=== PATIENT | male | born 1945 | race Caucasian/White ===

== ENCOUNTER → 2016-10-02 | Outpatient (CLI) | payer MEDICARE | END | disposition home or self-care (01) | LOC: GMAB 10:43 | PROVIDERS: ATTEND Family Medicine | DX: D53.9 Nutritional anemia, unspecified (principal) ==

== ENCOUNTER → 2017-04-16 | Outpatient (CLI) | payer MEDICARE | END | disposition home or self-care (01) | LOC: GMAB 10:44 | PROVIDERS: ATTEND Family Medicine | DX: D53.9 Nutritional anemia, unspecified (principal) ==

== ENCOUNTER 2017-04-22 05:45 | Day surgery (SDC) | payer MEDICARE ==
[2017-04-22] MEDS ORDERED: LACTATED RINGERS 1,000 ML ONE (05:55)
[2017-04-22] MEDS ORDERED: PROPOFOL 200 MG/20 ML VIAL IV ONE (09:00)
--- NOTE | 2017-04-22 10:08 | OP ---
DATE OF PROCEDURE: 04/22/17 PREOPERATIVE DIAGNOSIS: 1. History of polyps. The patient had serrated adenoma removed in March 2014. POSTOPERATIVE DIAGNOSIS: 1. Ascending colon polyp. 2. Diverticulosis. PROCEDURE: 1. Colonoscopy plus polypectomy. SURGEON: Jason Triplett MD. COMPLICATIONS: None apparent. BLOOD LOSS: None. MEDICATIONS: Monitored anesthesia care. DESCRIPTION OF PROCEDURE: Informed consent was obtained prior to sedation. The preprocedure cardiopulmonary assessment was satisfactory. The patient was placed in the left lateral decubitus position and was sedated. A digital rectal exam was unremarkable. The tip of the Olympus colonoscope was inserted in the rectum and guided over to the cecum. The cecum was identified by locating the ileocecal valve and appendiceal orifice. Prep was good. The mucosa of the cecum, ascending colon, hepatic flexure, transverse colon, splenic flexure, descending colon and sigmoid colon was closely examined. Direct and retroflexed views of the rectum were obtained. The patient had an 8 mm sessile polyp in the ascending colon. This was removed with a hot snare. To make sure there was no residual tissue on the edges of the polypectomy site, the hot snare was used to fulgurate the edges. The patient had a few sigmoid diverticula. Otherwise, the colonoscopy was unremarkable. The procedure was then terminated. ENDOSCOPIC FINDINGS: 1. Single ascending colon polyp, removed with hot snare. 2. Diverticulosis. RECOMMENDATIONS: 1. Followup polyp pathology. 2. We will review that with the patient over the phone in a week. #[id number] cc: Gianfranco Carreon MD MTDD
[2017-04-22 10:20] VITALS: BP 130/86; TEMP 97.1; O2SAT 97
== END 2017-04-22 10:00 | disposition home or self-care (01) ==
LOC: AMB 05:45
PROVIDERS: ATTEND Internal Medicine Gastroenterology
DX: Z12.11 Encounter for screening for malignant neoplasm of colon (principal); D12.2 Benign neoplasm of ascending colon; K57.30 Diverticulosis of large intestine without perforation or abscess without bleeding; I10 Essential (primary) hypertension; E78.5 Hyperlipidemia, unspecified; E11.9 Type 2 diabetes mellitus without complications; K76.0 Fatty (change of) liver, not elsewhere classified; Z86.010 Personal history of colon polyps; Z87.891 Personal history of nicotine dependence; Z86.73 Personal history of transient ischemic attack (TIA), and cerebral infarction without residual deficits; Z79.82 Long term (current) use of aspirin; Z79.899 Other long term (current) drug therapy
CPT/HCPCS: 00810; 45385; 82948; 88305; J7120

== ENCOUNTER → 2017-09-02 | Outpatient (CLI) | payer MEDICARE | LOC: GMAB 11:29 | PROVIDERS: ATTEND Family Medicine | DX: Z12.5 Encounter for screening for malignant neoplasm of prostate (principal); I10 Essential (primary) hypertension | CPT/HCPCS: 84443; G0103 ==

== ENCOUNTER → 2017-10-02 | Outpatient (CLI) | payer MEDICARE | LOC: GMAB 10:34 | PROVIDERS: ATTEND Family Medicine | DX: D53.9 Nutritional anemia, unspecified (principal) ==

== ENCOUNTER → 2017-12-11 | Outpatient (CLI) | payer MEDICARE ==
--- NOTE | 2017-12-11 13:57 | US ---
EXAM DESCRIPTION: Renal: Ultrasound. CLINICAL HISTORY: N18.4. Chronic kidney disease, stage IV (severe). COMPARISON: Bilateral renal arterial Doppler evaluation on the same visit. TECHNIQUE: Transcutaneous scanning: Two-dimensional and Doppler modes. FINDINGS: Right kidney measures 9.6 x 5.6 x 5.5 cm; mid-renal cortical thickness 12 mm. . Minimally increased cortical echogenicity. No hydronephrosis No calcifications. Minimally lobulated contour of the kidney with no perinephric fluid. Normal vascularity. Proximal ureter not visualized. Left kidney measures 10.6 x 5.7 x 5.6 cm; mid-renal cortical thickness normal. Increased echogenicity of the cortex.. 2.0 x 1.5 x 1.4 cm cyst. 1.1 x 1.0 x 0.71 cm cyst. No hydronephrosis. No calcifications. Minimally lobulated contour of the kidney with no perinephric fluid. Normal vascularity.. Proximal ureter not visualized. Urinary bladder not visualized. Abdominal aorta diameter not measured. IMPRESSION: Bilateral kidneys with lobulated contour and increased cortical echogenicity consistent with chronic renal disease. Normal thickness of the left renal cortex. No hydronephrosis or large calcifications bilaterally. No perinephric fluid. Proximal ureters were not seen. Urinary bladder was not seen. Electronically signed by: Ash Wood MD 12/11/2017 1:56 PM CDT
== END ==
LOC: LAB.O 09:12
PROVIDERS: ATTEND Internal Medicine Nephrology
DX: N18.4 Chronic kidney disease, stage 4 (severe) (principal); Z11.59 Encounter for screening for other viral diseases

== ENCOUNTER → 2018-04-02 | Outpatient (CLI) | payer MEDICARE | LOC: GMAE 10:27 | PROVIDERS: ATTEND Family Medicine | DX: D53.9 Nutritional anemia, unspecified (principal) ==

== ENCOUNTER → 2018-05-05 | Outpatient (CLI) | payer MEDICARE ==
--- NOTE | 2018-05-05 17:21 | US ---
Procedure: US ABDOMEN Exam Date: 05/05/2018 Ordering Provider: MITCHELL SUGGS Clinical Indication: CIRRHOSIS Comparison: 06/17/2016 Technique: Real-time ultrasonography was obtained over the abdominal viscera and professional healthcare representative images were recorded. Findings: The liver is normal in size. Slightly nodular contour, particularly of the left hepatic lobe. There is a coarsened hepatic echotexture. There are no intrahepatic masses. There is no intrahepatic ductal dilatation. Hepatopedal flow in the main portal vein. The gallbladder is normal in size and appearance. There are no gallstones. There is no gallbladder wall thickening or pericholecystic fluid. The extrahepatic common duct is normal in size measuring 4.2 mm. The spleen is normal in size and contour. There are no splenic masses. Pancreas is obscured by overlying bowel gas. No evidence of abdominal aortic aneurysm. The right kidney measures 10.0 cm in bipolar length. There are no suspicious masses, calculi, or hydronephrosis. The left kidney measures 10.8 cm in bipolar length. There are no suspicious masses, calculi, or hydronephrosis. Multiple cysts, largest measuring 1.6 cm. There is no ascites. Impression: 1. Cirrhotic liver morphology. No hepatic mass identified. 2. Left renal cysts. Electronically signed by: Trevor Azevedo MD 05/05/2018 5:20 PM CDT
== END ==
LOC: LAB.O 11:24
PROVIDERS: ATTEND Internal Medicine Gastroenterology
DX: K74.60 Unspecified cirrhosis of liver (principal); K76.89 Other specified diseases of liver

== ENCOUNTER → 2019-04-01 | Outpatient (CLI) | payer MEDICARE | LOC: GMAE 10:27 | PROVIDERS: ATTEND Family Medicine | DX: D64.9 Anemia, unspecified (principal) ==

== ENCOUNTER → 2019-11-25 | Outpatient (CLI) | payer MEDICARE ==
--- NOTE | 2019-11-25 09:05 | RAD ---
EXAM DESCRIPTION: Hand,Left 3 Views CLINICAL HISTORY: 74 years Male, PAIN IN LEFT HAND COMPARISON: None. Findings: 3 views/radiographs Location: Left hand No acute fracture or dislocation. Advanced first CMC osteoarthritis with radial subluxation of the thumb metacarpal. Marked scattered asymmetric IP joint space narrowing with associated overhanging osteophytes most pronounced in the second digit DIP joint. Soft tissues are unremarkable. IMPRESSION: Left hand arthropathy. No acute osseous abnormality. Electronically signed by: Isauro Mendez MD 11/25/2019 9:04 AM CDT
== END ==
LOC: RAD 07:33
PROVIDERS: ATTEND Orthopaedic Surgery
DX: M12.9 Arthropathy, unspecified (principal)

== ENCOUNTER → 2019-12-08 | Outpatient (CLI) | payer MEDICARE | LOC: LAB.O 09:08 | PROVIDERS: ATTEND Family Medicine | DX: Z01.818 Encounter for other preprocedural examination (principal) ==

== ENCOUNTER 2019-12-21 05:34 | Day surgery (SDC) | payer MEDICARE ==
[2019-12-21] MEDS ORDERED: LIDOCAINE 1% 10 ML VIAL INJ ONE ×2 (07:00→09:00)
[2019-12-21] MEDS ORDERED: PROPOFOL 200 MG/20 ML VIAL IV ONE (07:00)
[2019-12-21] MEDS ORDERED: LACTATED RINGERS 1,000 ML IVS ONE (07:25)
[2019-12-21] MEDS ORDERED: ceFAZolin SODIUM 1 GM VIAL IVPB ONE (08:53)
[2019-12-21] MEDS ORDERED: BUPIVACAINE 0.25% INJ 30 ML VIAL INJ ONE (09:00)
[2019-12-21] MEDS ORDERED: VANCOMYCIN HCL INJ 1,000 MG VIAL IVPB ONE ×2 (09:14→09:26)
[2019-12-21] MEDS ORDERED: ceFAZolin SODIUM 1 GM VIAL INJ ONE ×2 (09:14→09:26)
[2019-12-21 10:20] VITALS: BP 147/98; TEMP 97; O2SAT 97
--- NOTE | 2019-12-22 08:58 | OP ---
DATE OF PROCEDURE: 12/21/19 PREOPERATIVE DIAGNOSIS: 1. Carpal tunnel syndrome, left hand. POSTOPERATIVE DIAGNOSIS: 1. Carpal tunnel syndrome, left hand. PROCEDURE: 1. Carpal tunnel release. SURGEON: Wilfredo Alcala MD. SERVER ENGINEER: Ash Feng CST, SA-C. ANESTHESIA: Local with sedation. COMPLICATIONS: None. FINDINGS: 1. Thickening of the transverse carpal ligament. 2. Narrowing of the median nerve across the carpal tunnel. INDICATION: Mr. Valero has a history of symptoms consistent with carpal tunnel syndrome. Because of the presence of his carpal tunnel syndrome and the symptoms affecting his daily living, he has requested operative intervention. After discussing the risks, benefits and alternatives to that, the patient has given informed consent for carpal tunnel release. PROCEDURE: The patient was brought to the Operating Room and placed in the supine position. Sedation was administered and local anesthetic was injected into the operative area under sterile conditions. After the injection of anesthetic, the arm was sterilely prepped and draped. A longitudinal incision was made directly overlying the transverse carpal ligament and blunt dissection was carried down to the ligament. The transverse carpal ligament was sharply transected along its length and a [place] elevator was used to ensure complete release of the ligament. Once release had been confirmed, the wound was thoroughly irrigated and the wound was closed with Nylon suture. A sterile dressing was placed and the patient was taken to the Day Surgery Unit. POSTOPERATIVE PLAN: The patient has been encouraged to do range of motion of the digits and will followup with us in two days. [facility][id number] [facility]
== END 2019-12-21 10:15 | disposition home or self-care (01) ==
LOC: AMB 05:34
PROVIDERS: ATTEND Orthopaedic Surgery
DX: G56.01 Carpal tunnel syndrome, right upper limb (principal); I10 Essential (primary) hypertension; E11.9 Type 2 diabetes mellitus without complications; K21.9 Gastro-esophageal reflux disease without esophagitis; M19.90 Unspecified osteoarthritis, unspecified site; Z79.899 Other long term (current) drug therapy; Z87.891 Personal history of nicotine dependence
CPT/HCPCS: 01810; 36416; 64721; 80307; 82948; J0690; J3370; J3490; J7120

== ENCOUNTER → 2019-12-30 | Outpatient (CLI) | payer MEDICARE ==
--- NOTE | 2019-12-31 18:05 | RAD ---
EXAM DESCRIPTION: Radiographs of the bilateral Shoulder:XR/CR/DR CLINICAL HISTORY: SHOULDER PAIN COMPARISON: None TECHNIQUE: 4 views, each shoulder. Internal and External rotation. Scapular "Y" image. And also axillary view. FINDINGS: No fracture right shoulder. Normal bone density. AC joint minimal narrowing with inferior marginal spurs. Mild downward sloping of the lateral acromion. Glenohumeral joint minimal subchondral sclerosis in the glenoid No abnormal radiodense objects in the soft tissues or joint spaces. No fracture left shoulder. Normal bone density. AC joint marginal spur inferior distal clavicle Glenohumeral joint minimal subchondral sclerosis in the glenoid No abnormal radiodense objects in the soft tissues or joint spaces. IMPRESSION: No acute bony abnormalities bilateral shoulders. Bilateral AC joint arthrosis more right than left. Possible encroachment on the right. Supraspinatus tendon outlet. Early degenerative changes in the bilateral glenoid fossa. Electronically signed by: Ash Wood MD 12/31/2019 6:03 PM CDT
== END ==
LOC: RAD 09:39
PROVIDERS: ATTEND Orthopaedic Surgery
DX: M19.011 Primary osteoarthritis, right shoulder (principal); M19.012 Primary osteoarthritis, left shoulder

== ENCOUNTER → 2020-01-31 | Outpatient (CLI) | payer MEDICARE ==
--- NOTE | 2020-01-31 09:00 | MRI ---
EXAM DESCRIPTION: MRI left shoulder CLINICAL HISTORY: Shoulder pain. Rotator cuff sprain COMPARISON: None. TECHNIQUE: Multiplanar, multisequence MR images of the left shoulder FINDINGS: Moderate acromioclavicular osteoarthritis with mild indentation of the supraspinatus. Type II acromion with lateral downsloping and prominent inferior acromial spur Full-thickness supraspinatus tendon tear anteriorly uncovering the horizontal facet with approximately 1.1 cm with retraction up to 1.7 cm. Muscle volume is mildly decreased with grade 1 fatty infiltration Infraspinatus tendinosis. Low-grade interstitial partial tear of the anterior tendon. Mild muscle volume loss and grade 1 fatty infiltration. Teres minor tendon and muscle are normal. Developmentally narrow coracohumeral interval, 6 mm, predisposing to chronic coracoid impingement of the subscapularis. The tendon is thinned. Partial interstitial tear of the upper tendon. Muscle volume is mildly decreased with grade 1 fatty infiltration Long head biceps tendon normal in the bicipital groove inferiorly. Minimal subluxation superiorly. Intra-articular tendon intact. Labral anchor intact. Blunted posterior superior labrum. No acute labral detachment No glenohumeral chondrosis or chronic osteochondral lesion. Mild intracapsular and pericapsular edema IMPRESSION: Full-thickness supraspinatus tendon tear with partial retraction anterior to mid tendon Low-grade interstitial tear of the upper subscapularis tendon with minimal biceps tendon subluxation Electronically signed by: Raphael Mcclure MD 01/31/2020 8:59 AM CDT
== END ==
LOC: MRI 07:44
PROVIDERS: ATTEND Orthopaedic Surgery
DX: S43.421D Sprain of right rotator cuff capsule, subsequent encounter (principal); S46.292D Other injury of muscle, fascia and tendon of other parts of biceps, left arm, subsequent encounter

== ENCOUNTER → 2020-02-01 | Outpatient (CLI) | payer MEDICARE ==
--- NOTE | 2020-02-01 09:51 | MRI ---
Study: MRI of the Right Shoulder. Indication: SPRAIN OF SHOULDER ROTATOR CUFF RIGHT Technique: Multiplanar, multi sequence MRI of the right shoulder was obtained without intravenous contrast. Comparison: None. Findings: Mild to moderate AC joint osteoarthritis. Type I acromion with mild lateral downsloping. Trace subacromial/subdeltoid bursal fluid. Full-thickness tearing anterior two thirds supraspinatus tendon insertion with high-grade articular tearing of its posterior margin as well as of the anterior margin of the infraspinatus tendon. Torn tendon fibers retracted to the level of the midline humeral head. Subscapularis tendinosis and attenuation. Teres minor tendon intact. Mild atrophy and grade 1 fatty infiltration rotator cuff musculature. Long head biceps tendinosis with mild longitudinal fissuring. No rupture. Circumferential labral truncation and degeneration. Minimal glenohumeral joint osteoarthritis. No acute fracture. Thickening and edema inferior glenohumeral ligament which can be seen with adhesive capsulitis. Impression: Full-thickness tearing anterior two thirds supraspinatus insertional with high-grade articular tearing of its posterior margin as well as of the anterior margin infraspinatus tendon. Subscapularis tendinosis and attenuation. Mild atrophy and grade 1 fatty infiltration rotator cuff musculature. Long head biceps tendinosis with mild longitudinal fissuring. Circumferential labral truncation and degeneration. Minimal glenohumeral joint osteoarthritis. Adhesive capsulitis. Mild to moderate AC joint osteoarthritis. Electronically signed by: Federico Garza MD 02/01/2020 9:50 AM CDT
== END ==
LOC: MRI 07:56
PROVIDERS: ATTEND Orthopaedic Surgery
DX: S43.421D Sprain of right rotator cuff capsule, subsequent encounter (principal); S43.431D Superior glenoid labrum lesion of right shoulder, subsequent encounter; M62.511 Muscle wasting and atrophy, not elsewhere classified, right shoulder; M75.21 Bicipital tendinitis, right shoulder; M19.011 Primary osteoarthritis, right shoulder; M75.01 Adhesive capsulitis of right shoulder

== ENCOUNTER → 2020-02-07 | Outpatient (CLI) | payer MEDICARE | LOC: GMAE 10:22 | PROVIDERS: ATTEND Family Medicine | DX: Z12.5 Encounter for screening for malignant neoplasm of prostate (principal); I10 Essential (primary) hypertension; E11.9 Type 2 diabetes mellitus without complications; E78.2 Mixed hyperlipidemia | CPT/HCPCS: 84443; G0103 ==

== ENCOUNTER → 2020-02-23 | Outpatient (CLI) | payer MEDICARE | LOC: LAB.O 10:46 | PROVIDERS: ATTEND Orthopaedic Surgery | DX: Z01.818 Encounter for other preprocedural examination (principal) ==

== ENCOUNTER 2020-04-25 05:20 | Day surgery (SDC) | payer MEDICARE ==
[2020-04-25] MEDS ORDERED: LACTATED RINGERS 1,000 ML ONE (06:38)
[2020-04-25] MEDS ORDERED: LIDOCAINE 1% 10 ML VIAL INJ ONE (07:00)
[2020-04-25] MEDS ORDERED: PROPOFOL 200 MG/20 ML VIAL IV ONE (07:00)
--- NOTE | 2020-04-25 09:49 | OP ---
DATE OF PROCEDURE: 04/25/20 PREOPERATIVE DIAGNOSIS: 1. History of polyps. POSTOPERATIVE DIAGNOSIS: 1. Two colonic polyps. 2. Diverticulosis. PROCEDURE: 1. Colonoscopy plus polypectomy. SURGEON: Jason Triplett MD. COMPLICATIONS: None apparent. BLOOD LOSS: None. MEDICATIONS: Monitored anesthesia care. DESCRIPTION OF PROCEDURE: Informed consent was obtained prior to sedation. The preprocedure cardiopulmonary assessment was satisfactory. The patient was placed in the left lateral decubitus position and was sedated. A digital rectal exam was unremarkable. The tip of the Olympus colonoscope was inserted in the rectum and guided over to the cecum. The cecum was identified by locating the ileocecal valve and appendiceal orifice. The [place] Bowel Prep Score was 8 and he had an overall excellent prep. There was some fluid in the left colon that had to be suctioned away to get an excellent view of the left colon. Retroflexed view of the cecum of the right colon was obtained. Following that maneuver, the mucosa of the cecum, ascending colon, hepatic flexure, transverse colon, splenic flexure, descending colon and sigmoid colon was examined on withdrawal of the scope. Direct and retroflexed views of the rectum were obtained. The patient had two small polyps. They were each about 2 mm in size. They were sessile and had the appearance of serrated adenomas. They were both removed with a cold snare and recovered. The patient also had a few scattered diverticula in the sigmoid. The procedure was otherwise unremarkable. RECOMMENDATIONS: 1. Followup polyp pathology. 2. Followup with me for his other medical issues we follow in four months in [place]. 3. Followup colonoscopy in five years. #[id number] cc: Fani Wang MD [facility]
[2020-04-25 10:17] VITALS: TEMP 98.5
[2020-04-25 10:25] VITALS: BP 121/79; O2SAT 96
== END 2020-04-25 10:15 | disposition home or self-care (01) ==
LOC: AMB 05:20
PROVIDERS: ATTEND Internal Medicine Gastroenterology
DX: D12.0 Benign neoplasm of cecum (principal); D12.3 Benign neoplasm of transverse colon; K57.30 Diverticulosis of large intestine without perforation or abscess without bleeding; E11.9 Type 2 diabetes mellitus without complications; E78.00 Pure hypercholesterolemia, unspecified; I10 Essential (primary) hypertension; Z86.010 Personal history of colon polyps; Z79.899 Other long term (current) drug therapy; Z87.891 Personal history of nicotine dependence; Z86.73 Personal history of transient ischemic attack (TIA), and cerebral infarction without residual deficits
CPT/HCPCS: 00811; 45385; 88305; J3490; J7120

== ENCOUNTER → 2020-07-13 | Outpatient (CLI) | payer MEDICARE ==
--- NOTE | 2020-07-14 15:31 | US ---
EXAM DESCRIPTION: Abdomen,Complete: Ultrasound. CLINICAL HISTORY: 74 years Male cirrhosis of liver COMPARISON: None Available. TECHNIQUE: Transabdominal scanning: grayscale and Doppler modes. FINDINGS: Gallbladder: normal size, shape, echogenicity; no intraluminal stones or sludge. No fluid around the gallbladder. No wall thickening. 1.7 mm Non-tender with transducer pressure. Common bile duct: caliber 4.1 mm within normal limits. Liver: Heterogeneous echogenicity; contour liver capsule smooth where seen. No fluid around the liver. Intrahepatic biliary ducts normal caliber. Doppler hepatopedal flow and normal caliber portal vein 10 mm.. Long axis right lobe 15.1 cm. Pancreas: normal size and echogenicity. Duct not seen. Complete abdominal aorta: Normal caliber from the proximal segment to the distal bifurcation.. IVC: visualized and normal caliber. Right kidney: long axis measures 9.6 cm; volume 119.9 mL.. Capsule is minimally lobulated. Cortical echogenicity is normal.. Normal cortical thickness. 10 x 10 mm cyst upper pole. 6.5 mm echogenic stone in the lower pole with posterior shadowing. No hydronephrosis. Left kidney: long axis measures 12.1 cm; volume 165.9 mL.. Juxtacortical cyst measuring 2.3 x 2.0 cm. Cortical echogenicity is normal.. Normal cortical thickness. No echogenic stones; no hydronephrosis. Spleen: Normal. No focal lesions.. 12.1 long axis. Other: None. IMPRESSION: 1. Heterogeneous echoes in the liver with physiologic vascular flow and normal caliber of the ducts. Not enlarged. Smooth capsule and no ascites. Pancreas negative. Spleen is unremarkable. 2. Bilateral kidneys normal size and cortical thickness and echogenicity. 10 mm cyst in 6.5 mm nonobstructive stone right kidney. 2.3 cm juxta cortical cyst left kidney. Normal caliber of the abdominal aorta and IVC. 3. Negative findings in the gallbladder and common bile duct. No abdominal wall tenderness with transducer pressure. Electronically signed by: Ash Wood MD 07/14/2020 3:29 PM ASSESSOR
== END ==
LOC: US 08:46
PROVIDERS: ATTEND Internal Medicine Gastroenterology
DX: K74.60 Unspecified cirrhosis of liver (principal); N20.0 Calculus of kidney; N28.1 Cyst of kidney, acquired

== ENCOUNTER → 2020-07-17 | Outpatient (CLI) | payer MEDICARE | LOC: GMAE 14:35 | PROVIDERS: ATTEND Family Medicine | DX: M79.10 Myalgia, unspecified site (principal) ==

== ENCOUNTER 2020-08-29 15:18 | Emergency (ER) | payer MEDICARE ==
[2020-08-29] MEDS ORDERED: IBUPROFEN 200 MG TAB PO ONE (15:27)
[2020-08-29 15:42] VITALS: TEMP 98
--- NOTE | 2020-08-29 16:08 | RAD ---
EXAM DESCRIPTION: Chest,1 View CLINICAL HISTORY: 75 years Male, body aches COMPARISON: None. Findings: One view(s)/radiograph(s) Trace left pleural effusion. Patchy bibasilar airspace disease. Cardiac silhouette and pulmonary vasculature are within normal limits. No pneumothorax. No acute osseous abnormality. IMPRESSION: Patchy bibasilar airspace disease; atelectasis or pneumonia. Trace left pleural effusion. Electronically signed by: Isaruo Mendez MD 08/29/2020 4:06 PM [facility]
[2020-08-29] MEDS ORDERED: AMOXICILLIN & POT CLAVULANATE 875 MG TAB PO ONE (16:44)
--- NOTE | 2020-08-29 16:47 | ED.PDOC ---
History of Present Illness - General Chief Complaint: General Stated Complaint: body aches,cough Time Seen by Provider: 08/29/20 15:27 Source: patient Exam Limitations: no limitations - History of Present Illness Initial Comments: The patient is a 75-year-old male presented emergency room secondary to a feeling of drowsiness and generalized mild weakness along with generalized myalgias for the last 24 hours. No real sore throat or cough. No chest pain. No nausea or vomiting. No diarrhea. He reports that he feels like he has the flu. He did receive a coronavirus vaccine on today, approximately 4 days ago. Timing/Duration: 24 hours Severity: moderate Improving Factors: nothing Worsening Factors: nothing Associated Symptoms: denies symptoms Allergies/Adverse Reactions: Allergies NO KNOWN ALLERGY Allergy (Verified 04/17/20 15:13) Home Medications: Ambulatory Orders Magnesium 250 mg PO BID 03/03/14 Multiple Vitamins W/ Minerals [Multi Complete] 1 cap PO DAILY 03/03/14 [place]-3 Fatty Acids [Fish Oil] 1,000 mg PO BID 03/03/14 Potassium Gluconate [Potassium] 595 mg PO DAILY 03/03/14 Simvastatin 20 mg PO DAILY 03/03/14 Aspirin [Aspirin Low Strength] 81 mg PO DAILY 04/20/17 Omeprazole [PriLOSEC Cap] 20 mg PO DAILY 04/20/17 Cannabinoids [Full Spectrum Extract 10 mg/ml] 1 liq PO BID 12/19/19 Primidone 250 mg PO QID 12/19/19 Amoxicillin & Pot Clavulanate [Augmentin Tab] 875 mg PO BID #14 tab 08/29/20 Review of Systems - Review of Systems Constitutional: States: malaise EENTM: States: no symptoms reported Respiratory: States: no symptoms reported Cardiology: States: no symptoms reported Gastrointestinal/Abdominal: States: no symptoms reported Genitourinary: States: no symptoms reported Musculoskeletal: States: see HPI Skin: States: no symptoms reported Neurological: States: no symptoms reported Endocrine: States: no symptoms reported All other Systems: No Change from Baseline Past Medical History (General) - Patient Medical History Hx Stroke: No Hx Congestive Heart Failure: No Hx Hypertension: Yes Hx Diabetes: Yes Hx MRSA: No - Vaccination History Hx Influenza Vaccination: Yes Hx Pneumococcal Vaccination: Yes Immunizations Comment: COVID vaccine 08/25/20 - Social History Hx Tobacco Use: Yes Family Medical History - Family History Mother Family History: Unknown Physical Exam - Physical Exam General Appearance: Alert, No apparent distress, Other - He does appear tired Eye Exam: bilateral normal Ears, Nose, Throat: hearing grossly normal, normal pharynx Neck: full range of motion, supple Respiratory: lungs clear, normal breath sounds, no respiratory distress, no accessory muscle use Cardiovascular/Chest: normal peripheral pulses, regular rate, rhythm, no edema Peripheral Pulses: radial,right: 2+, radial,left: 2+ Gastrointestinal/Abdominal: non tender, soft Rectal Exam: deferred Back Exam: no CVA tenderness, no vertebral tenderness Extremity: normal range of motion, non-tender, normal inspection, no pedal edema, normal capillary refill 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 He has tested negative for strep, flu and coronavirus. Chest x-ray does show some changes that could be consistent with early pneumonia. For this reason he is going to be placed on Augmentin twice daily for the next 7 days. He needs to keep himself well- hydrated. It is possible that this may be a delayed reaction to the coronavirus vaccine that he received. He can take ibuprofen twice daily to help reduce symptoms. ER warnings were given for any significant worsening. Initial hypotension that was noted has resolved with relaxation. ER warnings are given. Keep routine follow-up with primary care doctor. chandler dupree [phone] - Results/Orders Results/Orders: Rapid strep is negative. Rapid flu is negative. Rapid coronavirus is negative. Acute abdominal series shows atelectasis versus mild infiltrates in bilateral bases. There is also a small effusion on the base of the left. See report for details. Laboratory Results - last 24 hr 08/29/20 08/29/20 08/29/20 15:27 16:18 16:18 WBC 4.0 L RBC 4.50 L Hgb 15.2 Hct 43.1 MCV 95.9 H MCH 33.9 H MCHC 35.4 RDW 13.5 Plt Count 81 L MPV 7.7 Absolute Neuts (auto) 2.20 Absolute Lymphs (auto) 1.30 Absolute Monos (auto) 0.30 Absolute Eos (auto) 0.10 Absolute Basos (auto) 0.00 Neutrophils % 55.9 Lymphocytes % 32.2 Monocytes % 8.4 Eosinophils % 2.5 Basophils % 1.0 PT INR PTT (SP) D-Dimer, Quantitative Sodium 139 Potassium 3.9 Chloride 105 Carbon Dioxide 26 Anion Gap 11.9 L BUN 19 H Creatinine 0.87 BUN/Creatinine Ratio 21.8 H Random Glucose 116 H Serum Osmolality 280.8 Lactic Acid Calcium 9.1 Total Bilirubin 1.2 H AST 37 ALT 45 Alkaline Phosphatase 48 Creatine Kinase 102 CK-MB (CK-2) 2.0 CK-MB (CK-2) % Not Reportable Troponin I < 0.02 B-Natriuretic Peptide 60.3 Serum Total Protein 6.8 Albumin 4.2 Globulin 2.6 Albumin/Globulin Ratio 1.6 Urine Color Urine Appearance Urine pH Ur Specific [place] Urine Protein Urine Glucose (UA) Urine Ketones Urine Blood Urine Nitrite Urine Bilirubin Urine Urobilinogen Ur Leukocyte Esterase Urine RBC Urine WBC Ur Epithelial Cells Urine Bacteria Urine Mucus Group A Strep Rapid Negative 08/29/20 08/29/20 08/29/20 16:18 16:18 16:30 WBC RBC Hgb Hct MCV MCH MCHC RDW Plt Count MPV Absolute Neuts (auto) Absolute Lymphs (auto) Absolute Monos (auto) Absolute Eos (auto) Absolute Basos (auto) Neutrophils % Lymphocytes % Monocytes % Eosinophils % Basophils % PT 11.4 H INR 1.15 PTT (SP) 22.6 D-Dimer, Quantitative < 131.0 L Sodium Potassium Chloride Carbon Dioxide Anion Gap BUN Creatinine BUN/Creatinine Ratio Random Glucose Serum Osmolality Lactic Acid 1.2 Calcium Total Bilirubin AST ALT Alkaline Phosphatase Creatine Kinase CK-MB (CK-2) CK-MB (CK-2) % Troponin I B-Natriuretic Peptide Serum Total Protein Albumin Globulin Albumin/Globulin Ratio Urine Color Yellow Urine Appearance Clear Urine pH 7.5 Ur Specific [place] 1.020 Urine Protein Negative Urine Glucose (UA) Negative Urine Ketones Negative Urine Blood Negative Urine Nitrite Negative Urine Bilirubin Negative Urine Urobilinogen 0.2 Ur Leukocyte Esterase Negative Urine RBC 0-1 Urine WBC 0-1 Ur Epithelial Cells 0 Urine Bacteria 0 Urine Mucus Trace Group A Strep Rapid Departure - Departure Clinical Impression: Myalgia Pneumonia Qualifiers: Pneumonia type: due to unspecified organism Laterality: left Lung location: lower lobe of lung Qualified Code(s): J18.9 - Pneumonia, unspecified organism Disposition: Discharge to Home or Self Care Condition: Fair Departure Forms: ED Discharge - Pt. Copy, Patient Portal Self Enrollment Instructions: Muscle and Bone Pain (DC) Diet: regular diet Activity: increase activity as tolerated Referrals: MARCOS ELLSWORTH MD [Primary Care Provider] - 1-2 Weeks Prescriptions: Amoxicillin & Pot Clavulanate [Augmentin Tab] 875 mg PO BID #14 tab Home Medications: Ambulatory Orders Magnesium 250 mg PO BID 03/03/14 Multiple Vitamins W/ Minerals [Multi Complete] 1 cap PO DAILY 03/03/14 [place]-3 Fatty Acids [Fish Oil] 1,000 mg PO BID 03/03/14 Potassium Gluconate [Potassium] 595 mg PO DAILY 03/03/14 Simvastatin 20 mg PO DAILY 03/03/14 Aspirin [Aspirin Low Strength] 81 mg PO DAILY 04/20/17 Omeprazole [PriLOSEC Cap] 20 mg PO DAILY 04/20/17 Cannabinoids [Full Spectrum Extract 10 mg/ml] 1 liq PO BID 12/19/19 Primidone 250 mg PO QID 12/19/19 Amoxicillin & Pot Clavulanate [Augmentin Tab] 875 mg PO BID #14 tab 08/29/20 Additional Instructions: The patient is a 75-year-old male presented emergency room secondary to be fatigue and myalgias of about 24 hours duration. He has tested negative for strep, flu and coronavirus. Chest x-ray does show some changes that could be consistent with early pneumonia. For this reason he is going to be placed on Augmentin twice daily for the next 7 days. He needs to keep himself well- hydrated. It is possible that this may be a delayed reaction to the coronavirus vaccine that he received. He can take ibuprofen twice daily to help reduce symptoms. ER warnings were given for any significant worsening. Initial hypotension that was noted has resolved with relaxation. ER warnings are given. Keep routine follow-up with primary care doctor.
[2020-08-29 17:03] VITALS: BP 146/91; O2SAT 97
== END 2020-08-29 17:03 | disposition home or self-care (01) ==
LOC: ER 15:18
DX: J18.9 Pneumonia, unspecified organism (principal); M79.10 Myalgia, unspecified site; I10 Essential (primary) hypertension; E11.9 Type 2 diabetes mellitus without complications; Z20.822 Contact with and (suspected) exposure to COVID-19; Z87.891 Personal history of nicotine dependence; Z79.82 Long term (current) use of aspirin